=== PATIENT | female | born 2000 | race Two or more races ===

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

== ENCOUNTER 2022-02-23 14:01 | Outpatient (CLI) | payer OTHER | END 2022-02-23 14:13 | disposition home or self-care (01) | LOC: SONOGRAMA 14:01 | PROVIDERS: ATTEND Obstetrics & Gynecology | DX: N91.1 Secondary amenorrhea (principal) ==

== ENCOUNTER 2024-10-14 08:57 | Emergency (ER) | payer OTHER ==
[~2024-10-14] VITALS: Ht 160 cm; Wt 104.3 kg
[~2024-10-14 08:57] MED LIST: NEXIUM 24HR20 MG PO
[2024-10-14] MEDS ORDERED: ORPHENADRINE CITRATE 30 MG/ML AMPUL IM STA (10:23)
[2024-10-14] MEDS ORDERED: ORPHENADRINE CITRATE 30 MG/ML AMPUL ONE (10:32)
== END 2024-10-14 13:54 | disposition home or self-care (01) ==
LOC: ER 09:07
DX: S52.592A Other fractures of lower end of left radius, initial encounter for closed fracture (principal); S20.219A Contusion of unspecified front wall of thorax, initial encounter; V43.52XA Car driver injured in collision with other type car in traffic accident, initial encounter; Y93.89 Activity, other specified; Y92.413 State road as the place of occurrence of the external cause; S00.511A Abrasion of lip, initial encounter; S13.4XXA Sprain of ligaments of cervical spine, initial encounter; Z88.0 Allergy status to penicillin; Z88.6 Allergy status to analgesic agent